=== PATIENT | male | born 1990 | race Caucasian/White ===

== ENCOUNTER 2017-11-01 20:54 | Emergency (ER) | payer SELFPAY ==
[2017-11-01 21:28] VITALS: BP 131/88; PULSE 98; RESP 20; TEMP 97.7; O2SAT 97
--- NOTE | 2017-11-01 21:56 | C.PDOC ---
History Of Present Illness 27yo male, presents to ED for evaluation of right hand pain after he fell and landed on his right hand 2 days ago. Patient states the pain is mostly in his right wrist and the swelling to his right hand. He has not taken any medications for the pain but has been applying ice to the area with minimal relief. He denies any weakness, numbness or tingling and offers no other complaints. Time Seen by Provider: 11/01/17 21:08 Chief Complaint (Nursing): Finger,Hand,&Wrist History Per: Patient History/Exam Limitations: no limitations Onset/Duration Of Symptoms: Days (2) Current Symptoms Are (Timing): Still Present Past Medical History Reviewed: Historical Data, Nursing Documentation, Vital Signs Vital Signs: Last Vital Signs Temp 97.7 F 11/01/17 21:27 Pulse 98 H 11/01/17 21:27 Resp 20 11/01/17 21:27 BP 131/88 11/01/17 21:27 Pulse Ox 97 11/02/17 04:26 - Medical History PMH: No Chronic Diseases, Gastritis Surgical History: No Surg Hx Family History: States: No Known Family Hx, Unknown Family Hx - Social History Hx Alcohol Use: Yes Hx Substance Use: No - Immunization History Hx Influenza Vaccination: No Hx Pneumococcal Vaccination: No Review Of Systems Except As Marked, All Systems Reviewed And Found Negative. Constitutional: Negative for: Fever, Chills Musculoskeletal: Positive for: Hand Pain (right) Neurological: Negative for: Weakness, Numbness Physical Exam - Physical Exam Appears: Non-toxic, No Acute Distress Skin: Normal Color Head: Atraumatic, Normacephalic Eye(s): bilateral: Normal Inspection, PERRL Neck: Normal ROM, Supple Extremity: Normal ROM (FROM of fingers on right hand), Tenderness (tenderness to dorsum of right wrist; no snuffbox tenderness), Capillary Refill (< 2 seconds ), No Deformity, Swelling (swelling to dorsum of right hand, no involvement of fingers. 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 XR reviewed, no fractures or dislocations. Patient's wrist placed in a splint and given a sling. Instructed to follow up with PMD in 2-3 days. Disposition - Disposition Referrals: [facility] [Outside] Disposition: HOME/ ROUTINE Disposition Time: 22:00 Condition: STABLE Additional Instructions: Keep arm elevated Apply ICE Motrin for pain Return to ER if worse Prescriptions: Ibuprofen [Motrin] 600 mg PO Q6H #20 tab Instructions: Wrist Sprain (DC), Contusion (DC) Forms: [employer] ([place]), Work Excuse - Clinical Impression Clinical Impression: Right wrist sprain, Sprain of hand, right, Hand contusion - PA / [employer] / Resident Statement MD/DO has reviewed & agrees with the documentation as recorded. - Scribe Statement The provider has reviewed the documentation as recorded by the Scribe (Roxanna Landa) Provider Attestation: All medical record entries made by the Scribe were at my direction and personally dictated by me. I have reviewed the chart and agree that the record accurately reflects my personal performance of the history, physical exam, medical decision making, and the department course for this patient. I have also personally directed, reviewed, and agree with the discharge instructions and disposition.
--- NOTE | 2017-11-02 08:28 | RAD ---
PROCEDURE: Right Wrist Radiographs. HISTORY: pain. trauma COMPARISON: None. FINDINGS: BONES: Normal. No fracture. JOINTS: Normal. No dislocation. SOFT TISSUES: Normal. OTHER FINDINGS: None. IMPRESSION: Normal right wrist radiographs.
--- NOTE | 2017-11-02 08:29 | RAD ---
PROCEDURE: Right Hand Radiographs. HISTORY: trauma, pain and swelling COMPARISON: None. FINDINGS: BONES: Normal. No fracture. JOINTS: Normal. No osteoarthritic changes. SOFT TISSUES: Normal. OTHER FINDINGS: None. IMPRESSION: Normal right hand radiographs.
== END 2017-11-01 22:09 | disposition home or self-care (01) ==
LOC: C.ER 20:54
DX: S63.91XA Sprain of unspecified part of right wrist and hand, initial encounter (principal); S60.221A Contusion of right hand, initial encounter; W18.30XA Fall on same level, unspecified, initial encounter